=== PATIENT | female | born 1995 | race American Indian/Alaskan Native ===

== ENCOUNTER 2019-12-01 20:09 | Emergency (ER) | payer OTHER ==
[2019-12-01] MEDS ORDERED: SODIUM CHLORIDE 0.9% 1,000 ML IV ONE (20:53)
[2019-12-01] MEDS ORDERED: LOPERAMIDE 2 MG CAPSULE PO STA (20:54)
[2019-12-01] MEDS ORDERED: METOCLOPRAMIDE 10 MG/2 ML VIAL IVP STA (20:54)
[2019-12-01] MEDS ORDERED: KETOROLAC 30 MG/ML VIAL IVP STA (20:54)
--- NOTE | 2019-12-01 20:56 | ED Physician Documentation ---
History of Present Illness - Stated complaint Stated Complaint: NECK PX/SHEFFIELD - Chief complaint Chief Complaint: General - History obtained from History obtained from: Patient - History of Present Illness Timing: Other (For about 4 days now she has had left-sided neck pain that is much worse if she rotates her neck to the right. That developed into a headache that was worse yesterday, gradual in onset and improved today but not gone. Today she developed vomiting and diarrhea. No fevers. No light sensitivity. She tried Tylenol Motrin without relief. No sick contacts. She traveled around the [place] this month but no foreign travel.) Review of Systems Constitutional: denies: Fever, Chills Nose: denies: Rhinorrhea / runny nose, Congestion Throat: denies: Sore throat Respiratory: denies: Dyspnea, Cough GI: reports: Nausea, Vomiting, Diarrhea. denies: Abdominal Pain PD PAST MEDICAL HISTORY - Past Medical History Past Medical History: No Cardiovascular: None Respiratory: None Neuro: None Endocrine/Autoimmune: None GI: None SENIOR ACCOUNT DIRECTOR: None : None HEENT: None Psych: None Musculoskeletal: None Derm: None - Past Surgical History Past Surgical History: Yes /SENIOR ACCOUNT DIRECTOR: section - Present Medications Home Medications: Ambulatory Orders Medication Instructions Recorded Confirmed Cyclobenzaprine [Flexeril] 10 mg PO TID PRN #10 tablet 12/01/19 Neomycin/Polymyx/Hc Otic Drops 4 drops OT TID #1 bottle 12/01/19 [Cortisporin Ear Susp] Ondansetron Odt [Zofran] 4 mg TL Q6H PRN #10 tablet 12/01/19 - Allergies Allergies/Adverse Reactions: Allergies Allergy/AdvReac Type Severity Reaction Status Date / Time No Known Drug Allergies Allergy Verified 12/01/19 20:20 - Social History Does the pt smoke?: Yes Smoking Status: Current every day smoker Does the pt drink ETOH?: Yes Does the pt have substance abuse?: No - Immunizations Immunizations are current?: Yes - POLST Patient has POLST: No PD ED PE NORMAL - Vitals Vital signs reviewed: Yes - General General: Alert and oriented X 3, No acute distress - HEENT HEENT: PERRL, EOMI, Pharynx benign - Neck Neck: Other (Tender over the left sternocleidomastoid and difficulty with rotation of the neck to the right but no meningismus) - Cardiac Cardiac: RRR, No murmur - Respiratory Respiratory: No respiratory distress, Clear bilaterally - Abdomen Abdomen: Normal bowel sounds, Soft, Non tender - Back Back: No CVA TTP, No spinal TTP - Derm Derm: Normal color, Warm and dry - Extremities Extremities: No edema, No calf tenderness / cord - Neuro Neuro: Alert and oriented X 3, Normal speech - Psych Psych: Normal mood, Normal affect Results - Vitals Vitals: Vital Signs - 24 hr 12/01/19 12/01/19 12/01/19 20:20 21:25 21:35 Temperature 37.3 C Heart Rate 76 82 Respiratory 17 16 Rate Blood Pressure 117/61 111/66 O2 Saturation 97 99 12/01/19 21:37 Temperature 37.1 C Heart Rate 66 Respiratory 12 Rate Blood Pressure 111/66 O2 Saturation 98 Oxygen O2 Source Room air - Labs Labs: Laboratory Tests 12/01/19 12/01/19 21:08 21:34 WBC 11.8 H RBC 4.47 Hgb 13.7 Hct 41.1 MCV 91.9 MCH 30.6 MCHC 33.3 RDW 14.2 Plt Count 322 MPV 10.5 Neut # (Auto) 8.1 H Lymph # (Auto) 2.7 [place] # (Auto) 0.9 Eos # (Auto) 0.1 Baso # (Auto) 0.1 Absolute Nucleated RBC 0.00 Nucleated RBC % 0.0 Sodium 140 Potassium 3.5 Chloride 106 Carbon Dioxide 24 Anion Gap 10.0 BUN 14 Creatinine 0.8 Estimated GFR (MDRD) 87 L Glucose 97 Calcium 8.6 Total Bilirubin 0.8 AST 22 ALT 21 Alkaline Phosphatase 62 Total Protein 6.9 Albumin 4.1 Globulin 2.8 Albumin/Globulin Ratio 1.5 Lipase 28 - Rads (name of study) CT Head Radiology: EMP read contemporaneously (NAD) PD MEDICAL DECISION MAKING - ED course ED course: Seems like the 2 illnesses are unrelated, she seems to have a tension headache of the left side of the neck, no migrainous symptoms. No meningismus. Now has vomiting and diarrhea. I suspect again that these are separate, but will CT her head as at least yesterday was the worst headache of her life, again it is improved today as far as the headache goes but now more vomiting diarrhea which we will treat with IV fluids, Reglan, Toradol, and Imodium. After some IV fluids And the above meds she was feeling much better. Tolerating oral intake. Head CT was negative. Headache much better. Departure - Departure Disposition: 01 Home, Self Care Clinical Impression: Neck muscle spasm, Gastroenteritis Headache Qualifiers: Headache type: tension-type Headache chronicity pattern: acute headache Intractability: not intractable Qualified Code(s): G44.209 - Tension-type headache, unspecified, not intractable Condition: Good Record reviewed to determine appropriate education?: Yes Instructions: ED Headache Tension, ED Gastroenteritis Viral Prescriptions: Cyclobenzaprine [Flexeril] 10 mg PO TID PRN #10 tablet PRN Reason: Spasms Neomycin/Polymyx/Hc Otic Drops [Cortisporin Ear Susp] 4 drops OT TID #1 bottle Ondansetron Odt [Zofran] 4 mg TL Q6H PRN #10 tablet PRN Reason: Nausea / Vomiting Comments: You should be better within the next 12 to 24 hours, return in that timeframe if not improved or anytime for new or worsening symptoms. Forms: Activity restrictions
[2019-12-01 21:17] LABS: BASOPHILS # (AUTO) 0.1 10^3/uL (0.0-0.1); BASOPHILS % (AUTO) 0.9 %; EOSINOPHILS # (AUTO) 0.1 10^3/uL (0.0-0.7); EOSINOPHILS % (AUTO) 0.4 %; HGB - HEMOGLOBIN 13.7 g/dL (12.0-16.0); LYMPHOCYTES # (AUTO) 2.7 10^3/uL (1.5-3.5); LYMPHOCYTES % (AUTO) 22.5 %; MEAN CORPUSCULAR HEMOGLOBIN 30.6 pg (27.0-31.0); MEAN CORPUSCULAR HGB CONC 33.3 g/dL (32.0-36.0); MEAN CORPUSCULAR VOLUME 91.9 fL (81.0-99.0); MEAN PLATELET VOLUME 10.5 fL (7.9-10.8); MONOCYTES # (AUTO) 0.9 10^3/uL (0.0-1.0); MONOCYTES % (AUTO) 7.2 %; NEUTROPHILS # (AUTO) 8.1 10^3/uL (1.5-6.6); NEUTROPHILS % (AUTO) 68.5 %; PLT - PLATELET COUNT 322 10^3/uL (130-450); RED BLOOD COUNT 4.47 10^6/uL (4.20-5.40); RED CELL DISTRIBUTION WIDTH 14.2 % (12.0-15.0); WHITE BLOOD COUNT 11.8 x10^3/uL (4.8-10.8)
[2019-12-01 21:36] VITALS: BP 111/66
--- NOTE | 2019-12-01 21:42 | CT Report ---
Reason: WHOL Procedure Date: 12/01/2019 Accession Number: [id number] / [id number] Procedure: CT - HEAD WO CPT Code: Final Report FULL RESULT: EXAM: CT HEAD EXAM DATE: 12/01/2019 09:27 PM. CLINICAL HISTORY: WHOL. COMPARISON: None. TECHNIQUE: Multiaxial CT images were obtained from the foramen magnum to the vertex. Reformats: Sagittal and coronal. IV contrast: None. In accordance with CT protocol optimization, one or more of the following dose reduction techniques were utilized for this exam: automated exposure control, adjustment of mA and/or KV based on patient size, or use of iterative reconstructive technique. FINDINGS: Parenchyma: No intraparenchymal hemorrhage. No evidence of mass, midline shift or CT findings of acute territorial infarction. Thomas-white differentiation is distinct. Extraaxial Spaces: No subdural or epidural collections identified. Ventricles: No hydrocephalus Sinuses: Imaged paranasal sinuses, orbits, and mastoids show no significant abnormality. Bones: No evidence of acute fracture or calvarial defect. Other: None. IMPRESSION: No acute intracranial abnormalities. RADIA
[2019-12-01 21:51] LABS: ALBUMIN 4.1 g/dL (3.2-5.5); ALBUMIN/GLOBULIN RATIO 1.5 (1.0-2.2); BILIRUBIN,TOTAL 0.8 mg/dL (0.2-1.0); CALCIUM 8.6 mg/dL (8.5-10.3); CREATININE 0.8 mg/dL (0.4-1.0); TOTAL PROTEIN 6.9 g/dL (6.7-8.2)
[2019-12-01] MEDS ORDERED: ONDANSETRON ODT 4 MG Prepack 2 TL STA (22:01)
[2019-12-01] MEDS ORDERED: CYCLOBENZAPRINE 10 MG Prepack 2 PO PRN (22:01)
== END 2019-12-01 22:20 | disposition home or self-care (01) ==
LOC: ED 20:09
DX: M62.838 Other muscle spasm (principal); M54.2 Cervicalgia; K52.9 Noninfective gastroenteritis and colitis, unspecified; G44.209 Tension-type headache, unspecified, not intractable; F17.200 Nicotine dependence, unspecified, uncomplicated
CPT/HCPCS: 36415; 70450; 80053; 83690; 85025; 96361; 96374; 96375; 99284; A9270; J2765

== ENCOUNTER 2020-05-29 12:29 | Emergency (ER) | payer OTHER ==
--- NOTE | 2020-05-29 13:30 | ED Physician Documentation ---
History of Present Illness - Stated complaint Stated Complaint: L LEG PX - Chief complaint Chief Complaint: Ext Problem - History obtained from History obtained from: Patient - Additonal information Additional information: Patient comes emergency department complaining of left buttock pain that shoots down her left lower extremity. This started a lot about 1 month ago after she fell off a ladder. 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 She states her pain had gotten better but she notices over the last week that it seems to be getting worse again. Patient states it is to the point where it is difficult for her to sleep because she cannot get comfortable in bed. Patient denies any other complaints at the time at this time. She was not injured in any other way. No swelling or erythema of the lower extremity. No numbness or tingling. Review of Systems Ten Systems: 10 systems reviewed and negative Constitutional: reports: Reviewed and negative Eyes: reports: Reviewed and negative Ears: reports: Reviewed and negative Nose: reports: Reviewed and negative Throat: reports: Reviewed and negative Cardiac: reports: Reviewed and negative Respiratory: reports: Reviewed and negative GI: reports: Reviewed and negative : reports: Reviewed and negative Skin: reports: Reviewed and negative Musculoskeletal: reports: Extremity pain Neurologic: reports: Reviewed and negative Psychiatric: reports: Reviewed and negative Endocrine: reports: Reviewed and negative Immunocompromised: reports: Reviewed and negative PD PAST MEDICAL HISTORY - Past Medical History Cardiovascular: None Respiratory: None Neuro: None Endocrine/Autoimmune: None GI: None WHALE TRAINER: None : None HEENT: None Psych: None Musculoskeletal: None Derm: None - Past Surgical History Past Surgical History: Yes /WHALE TRAINER: section - Present Medications Home Medications: Ambulatory Orders Medication Instructions Recorded Confirmed No Known Home Medications 05/29/20 05/29/20 - Allergies Allergies/Adverse Reactions: Allergies Allergy/AdvReac Type Severity Reaction Status Date / Time No Known Drug Allergies Allergy Verified 05/29/20 12:42 - Social History Does the pt smoke?: Yes Smoking Status: Current every day smoker Does the pt drink ETOH?: Yes Does the pt have substance abuse?: No - Immunizations Immunizations are current?: Yes - POLST Patient has POLST: No PD ED PE NORMAL - Vitals Vital signs reviewed: Yes - General General: Alert and oriented X 3, No acute distress - HEENT HEENT: Atraumatic, PERRL, EOMI, Moist mucous membranes - Neck Neck: Supple, no meningeal sign - Cardiac Cardiac: RRR, No murmur - Respiratory Respiratory: No respiratory distress, Clear bilaterally - Abdomen Abdomen: Soft, Non tender, Non distended - Back Back: No spinal TTP, Other - Derm Derm: Warm and dry - Extremities Extremities: No deformity, Other (Patient is tenderness over her left sciatic joint. No lower extremity edema or tenderness) - Neuro Neuro: Alert and oriented X 3, procedure manager 2-12 intact, No motor deficit, No sensory deficit, Other (Otherwise normal.) - Psych Psych: Normal mood, Normal affect Results - Vitals Vitals: Vital Signs - 24 hr 05/29/20 05/29/20 12:39 13:36 Temperature 36.6 C 36.6 C Heart Rate 81 70 Respiratory 18 16 Rate Blood Pressure 128/66 114/60 O2 Saturation 100 98 Oxygen O2 Source Room air PD MEDICAL DECISION MAKING - ED course Complexity details: considered differential, d/w patient ED course: Discussed with the patient that her symptoms are most consistent with sciatica. We have discussed stretching to alleviate the symptoms and taking as needed medication to help, as well. I discussed with her that if these do not alleviate the pain, then she will need to talk to her primary doctor about possibly getting MRI and physical therapy. We discussed home management of symptoms, as well as usual indications for return. Departure - Departure Disposition: 01 Home, Self Care Clinical Impression: Sciatica Qualifiers: Laterality: left Qualified Code(s): M54.32 - Sciatica, left side Condition: Stable Instructions: ED Sciatica Comments: Please Google "sciatica stretches" to find helpful exercises to relieve the pressure on your sciatic nerve. Discharge Date/Time: 05/29/20 13:54
[2020-05-29 13:37] VITALS: BP 114/60
== END 2020-05-29 13:54 | disposition home or self-care (01) ==
LOC: ED 12:29
DX: M54.32 Sciatica, left side (principal); F17.200 Nicotine dependence, unspecified, uncomplicated
CPT/HCPCS: 99282; 99284

== ENCOUNTER 2021-12-12 08:35 | Emergency (ER) | payer OTHER ==
[2021-12-12] MEDS ORDERED: ONDANSETRON 4 MG/2 ML VIAL IVP STA (09:01)
[2021-12-12] MEDS ORDERED: SODIUM CHLORIDE 0.9% 1,000 ML IV STA (09:01)
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
[2021-12-12 09:11] LABS: BASOPHILS # (AUTO) 0.1 10^3/uL (0.0-0.1); BASOPHILS % (AUTO) 1.1 %; EOSINOPHILS % (AUTO) 0.3 %; HCT - HEMATOCRIT 37.1 % (37.0-47.0); HGB - HEMOGLOBIN 12.7 g/dL (12.0-16.0); LYMPHOCYTES # (AUTO) 1.7 10^3/uL (1.5-3.5); LYMPHOCYTES % (AUTO) 26.7 %; MEAN CORPUSCULAR HEMOGLOBIN 30.8 pg (27.0-31.0); MEAN CORPUSCULAR HGB CONC 34.2 g/dL (32.0-36.0); MEAN PLATELET VOLUME 10.2 fL (7.9-10.8); MONOCYTES # (AUTO) 0.5 10^3/uL (0.0-1.0); NEUTROPHILS % (AUTO) 63.7 %; PLT - PLATELET COUNT 284 10^3/uL (130-450); RED BLOOD COUNT 4.12 10^6/uL (4.20-5.40); RED CELL DISTRIBUTION WIDTH 13.6 % (12.0-15.0); WHITE BLOOD COUNT 6.3 x10^3/uL (4.8-10.8)
[2021-12-12 09:25] LABS: ALBUMIN 4.5 g/dL (3.2-5.5); ALBUMIN/GLOBULIN RATIO 1.4 (1.0-2.2); BILIRUBIN,TOTAL 0.7 mg/dL (0.2-1.0); CALCIUM 9.2 mg/dL (8.5-10.3); CREATININE 0.6 mg/dL (0.4-1.0); POTASSIUM 3.6 mmol/L (3.5-5.0); TOTAL PROTEIN 7.7 g/dL (6.7-8.2)
[2021-12-12 09:51] LABS: BILIRUBIN,URINE NEGATIVE (NEGATIVE); GLUCOSE, URINE (UA) NEGATIVE (NEGATIVE); KETONES,URINE (UA) TRACE mg/dL (NEGATIVE); LEUKOCYTE ESTERASE, URINE NEGATIVE (NEGATIVE); NITRITE,URINE NEGATIVE (NEGATIVE); OCCULT BLOOD,URINE NEGATIVE (NEGATIVE); PROTEIN,URINE NEGATIVE (NEGATIVE); UROBILINOGEN,URINE 1 (NORMAL) E.U./dL (NORMAL)
[2021-12-12 09:53] LABS: CLARITY,URINE CLEAR (CLEAR); HCG UR QUAL NEGATIVE
[2021-12-12 10:44] VITALS: BP 118/80
== END 2021-12-12 10:44 | disposition home or self-care (01) ==
LOC: ED 08:35
DX: R11.2 Nausea with vomiting, unspecified (principal); R19.7 Diarrhea, unspecified; R00.2 Palpitations; F17.200 Nicotine dependence, unspecified, uncomplicated
CPT/HCPCS: 36415; 80053; 81001; 81003; 81025; 83690; 85025; 87086; 93005; 96374; 99283

== ENCOUNTER → 2022-11-13 | Outpatient (CLI) | payer OTHER | END | disposition critical access hospital (66) | LOC: EMS 03:31 | DX: T50.901A Poisoning by unspecified drugs, medicaments and biological substances, accidental (unintentional), initial encounter (principal) | CPT/HCPCS: A0425; A0427 ==

== ENCOUNTER 2023-01-11 21:36 | Outpatient (CLI) | payer OTHER | END 2023-01-11 21:37 | disposition left against medical advice (07) | LOC: EMS 21:36 | DX: S00.03XA Contusion of scalp, initial encounter (principal); S00.81XA Abrasion of other part of head, initial encounter; Y04.2XXA Assault by strike against or bumped into by another person, initial encounter; Y92.481 Parking lot as the place of occurrence of the external cause ==

== ENCOUNTER 2023-01-12 00:09 | Emergency (ER) | payer OTHER ==
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
[2023-01-12] MEDS ORDERED: KETOROLAC 15 MG/ML VIAL IVP STA (00:43)
[2023-01-12] MEDS ORDERED: ONDANSETRON 4 MG/2 ML VIAL IVP STA (00:43)
[2023-01-12] MEDS ORDERED: SODIUM CHLORIDE 0.9% 1,000 ML IV STA (00:43)
[2023-01-12] MEDS ORDERED: ACETAMINOPHEN 325 MG TABLET PO STA (00:45)
[2023-01-12 01:03] LABS: BASOPHILS # (AUTO) 0.1 10^3/uL (0.0-0.1); BASOPHILS % (AUTO) 0.8 %; EOSINOPHILS # (AUTO) 0.1 10^3/uL (0.0-0.7); EOSINOPHILS % (AUTO) 0.6 %; HCT - HEMATOCRIT 34.1 % (37.0-47.0); HGB - HEMOGLOBIN 11.4 g/dL (12.0-16.0); LYMPHOCYTES # (AUTO) 2.2 10^3/uL (1.5-3.5); LYMPHOCYTES % (AUTO) 27.6 %; MEAN CORPUSCULAR HEMOGLOBIN 29.5 pg (27.0-31.0); MEAN CORPUSCULAR HGB CONC 33.4 g/dL (32.0-36.0); MEAN CORPUSCULAR VOLUME 88.3 fL (81.0-99.0); MEAN PLATELET VOLUME 10.2 fL (7.9-10.8); MONOCYTES # (AUTO) 0.5 10^3/uL (0.0-1.0); NEUTROPHILS # (AUTO) 5.1 10^3/uL (1.5-6.6); NEUTROPHILS % (AUTO) 64.7 %; PLT - PLATELET COUNT 394 10^3/uL (130-450); RED BLOOD COUNT 3.86 10^6/uL (4.20-5.40); RED CELL DISTRIBUTION WIDTH 14.6 % (12.0-15.0); WHITE BLOOD COUNT 7.8 x10^3/uL (4.8-10.8)
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
[2023-01-12 01:34] LABS: ALBUMIN 4.1 g/dL (3.2-5.5); ALBUMIN/GLOBULIN RATIO 1.2 (1.0-2.2); ALKALINE PHOSPHATASE 56 IU/L (42-121); ALT ALANINE AMINOTRANSFERASE 17 IU/L (10-60); AST ASPARTATE AMINOTRANSFERASE 19 IU/L (10-42); BILIRUBIN,TOTAL 0.4 mg/dL (0.2-1.0); BUN - BLOOD UREA NITROGEN < 5 mg/dL (6-20); CARBON DIOXIDE - CO2 21 mmol/L (21-32); CHLORIDE 111 mmol/L (101-111); CREATININE 0.5 mg/dL (0.4-1.0); GFR - MDRD 146 (>89); GLUCOSE 120 mg/dL (70-100); LIPASE 29 U/L (22-51); POTASSIUM 3.6 mmol/L (3.5-5.0); SODIUM 144 mmol/L (135-145); TOTAL PROTEIN 7.4 g/dL (6.7-8.2)
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
[2023-01-12 02:58] VITALS: BP 106/77
[2023-01-12] MEDS ORDERED: ONDANSETRON ODT 4 MG Prepack 2 TL PRN (03:00)
[2023-01-12] MEDS ORDERED: CHERRY SYRUP 10 ML UDC PO ONE (03:01)
[2023-01-12] MEDS ORDERED: METHYLERGONOVINE 0.2 MG/ML VIAL PO STA (03:01)
[2023-01-12] MEDS ORDERED: METHYLERGONOVINE 0.2 MG/ML VIAL ONE (03:13)
--- NOTE | 2023-01-12 08:38 | Ultrasound Report ---
PROCEDURE: Pelvic w/Transvag+Doppler Comp INDICATIONS: miscarriage 7 days ago, persistent bleeding TECHNIQUE: Real-time scanning was performed of the pelvic organs, with image documentation. Additional endovagi nal scanning was necessary due to incomplete visualization of the adnexal and endometrial structures by transabdominal scanning. Doppler interrogation was performed of the ovaries bilaterally. COMPARISON: None. FINDINGS: No pathologic free abdominal or pelvic fluid. Uterus: Uterus is enlarged in size at 9 x 4.3 x 5.6 cm. Myometrium is heterogeneous in echotexture. No discrete uterine fibroid is seen. The endometrium measures 20.3 mm in combined thickness. Hetero geneous echotexture of endometrium is noted. Heterogeneous material is noted in the cervix measures 2 .1 x 3.1 x 2.3 cm in size which could represent blood products. Anechoic nabothian cyst is also seen. Ovaries: Right ovary measures 6.5 x 3.4 x 4.3 cm in size with a volume of 50 cc. Predominantly anech oic cyst of right ovary is seen measures 3.5 x 3.5 x 3.7 cm in size. Left ovary is suboptimally visua lized and measures 1.9 x 1 cm in size. No gross abnormality is seen in left ovary. Normal appearing a rterial and venous waveforms are confirmed to each ovary.] Other: No free pelvic fluid. IMPRESSION: 1. Thickened and heterogeneous endometrium measures up to 2 cm likely containing blood products and d ebris extending to lower uterine segment and cervix. Underlying endometrial mass cannot be entirely e xcluded. COMPUTER HELP DESK REPRESENTATIVE correlation is recommended. 2. Anechoic cyst seen in right ovary as above. No solid-appearing ovarian lesion. 3. No evidence of ovarian torsion. No discrepancies. Reviewed by: Andrew Allen MD on 01/12/2023 8:36 AM PST Approved by: Andrew Allen MD on 01/12/2023 8:36 AM PST Station ID: [id number]
== END 2023-01-12 03:27 | disposition home or self-care (01) ==
LOC: ED 00:09
DX: S06.0X0A Concussion without loss of consciousness, initial encounter (principal); S00.83XA Contusion of other part of head, initial encounter; O03.9 Complete or unspecified spontaneous abortion without complication; S60.221A Contusion of right hand, initial encounter; Y04.2XXA Assault by strike against or bumped into by another person, initial encounter
CPT/HCPCS: 36415; 70551; 73130; 76830; 76856; 80053; 83690; 84702; 85025; 93975; 96361; 96374; 96375; 99284; A9270; J2210

== ENCOUNTER 2023-01-28 08:00 | Emergency (ER) | payer OTHER ==
[2023-01-28 08:42] LABS: BASOPHILS # (AUTO) 0.1 10^3/uL (0.0-0.1); BASOPHILS % (AUTO) 0.5 %; EOSINOPHILS # (AUTO) 0.1 10^3/uL (0.0-0.7); EOSINOPHILS % (AUTO) 0.9 %; HCT - HEMATOCRIT 34.2 % (37.0-47.0); HGB - HEMOGLOBIN 10.9 g/dL (12.0-16.0); LYMPHOCYTES # (AUTO) 1.3 10^3/uL (1.5-3.5); LYMPHOCYTES % (AUTO) 12.4 %; MEAN CORPUSCULAR HEMOGLOBIN 27.7 pg (27.0-31.0); MEAN CORPUSCULAR HGB CONC 31.9 g/dL (32.0-36.0); MEAN PLATELET VOLUME 9.3 fL (7.9-10.8); MONOCYTES # (AUTO) 0.7 10^3/uL (0.0-1.0); MONOCYTES % (AUTO) 6.8 %; NEUTROPHILS # (AUTO) 8.1 10^3/uL (1.5-6.6); PLT - PLATELET COUNT 400 10^3/uL (130-450); RED BLOOD COUNT 3.93 10^6/uL (4.20-5.40); RED CELL DISTRIBUTION WIDTH 14.1 % (12.0-15.0); WHITE BLOOD COUNT 10.3 x10^3/uL (4.8-10.8)
[2023-01-28 08:57] LABS: ALBUMIN/GLOBULIN RATIO 1.3 (1.0-2.2); BILIRUBIN,TOTAL 0.4 mg/dL (0.2-1.0); CREATININE 0.6 mg/dL (0.4-1.0); POTASSIUM 3.7 mmol/L (3.5-5.0)
[2023-01-28] MEDS ORDERED: KETOROLAC 60 MG/2 ML VIAL IM STA (09:58)
[2023-01-28] MEDS ORDERED: ONDANSETRON ODT 4 MG TABLET TL STA (09:58)
[2023-01-28] MEDS ORDERED: ACETAMINOPHEN 325 MG TABLET PO STA (09:58)
[2023-01-28] MEDS ORDERED: SODIUM CHLORIDE 0.9% 1,000 ML IV STA (09:59)
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
[2023-01-28 10:24] LABS: HCG,QUALITATIVE BLOOD NEGATIVE
[2023-01-28 12:16] LABS: B. PARAPERTUSSIS- RESP PCR PAN NOT DETECTED; B. PERTUSSIS- RESP PCR PANEL NOT DETECTED; C. PNEUMONIAE- RESP PCR PANEL NOT DETECTED; CORONAVIRUS 229E-RESP PCR NOT DETECTED; CORONAVIRUS HKU1-RESP PCR NOT DETECTED; CORONAVIRUS NL63-RESP PCR NOT DETECTED; CORONAVIRUS OC43-RESP PCR NOT DETECTED; HUMAN METAPNEUMOVIRUS NOT DETECTED; INFLUENZA A- RESP PCR PANEL NOT DETECTED; INFLUENZA B - RESP PCR PANEL NOT DETECTED; M. PNEUMONIAE- RESP PCR PANEL NOT DETECTED; PARAINFLUENZA VIRUS 1 NOT DETECTED; PARAINFLUENZA VIRUS 2 NOT DETECTED; PARAINFLUENZA VIRUS 3 NOT DETECTED; PARAINFLUENZA VIRUS 4 NOT DETECTED; RHINOVIRUS/ENTEROVIRUS NOT DETECTED; RSV- RESP PCR PANEL NOT DETECTED; SARS-CoV-2 -RESP PCR PANEL NOT DETECTED
[2023-01-28 12:56] VITALS: BP 99/62
== END 2023-01-28 12:58 | disposition home or self-care (01) ==
LOC: ED 08:00
DX: R55 Syncope and collapse (principal); B34.9 Viral infection, unspecified; F17.200 Nicotine dependence, unspecified, uncomplicated; Z20.822 Contact with and (suspected) exposure to COVID-19
CPT/HCPCS: 36415; 80053; 83690; 84484; 84703; 85025; 87633; 93005; 99284; A9270; Q0162

== ENCOUNTER 2023-07-06 12:05 | Emergency (ER) | payer OTHER ==
--- NOTE | 2023-07-06 12:27 | ED Physician Documentation ---
History of Present Illness - Stated complaint Stated Complaint: PREG, CRAMPING - Chief complaint Chief Complaint: General - Additonal information Additional information: 27-year-old female presents at approximately 6 weeks for her lower abdominal cramping and light spotting. Symptoms started yesterday. She has not had any dysuria urgency or frequency, no nausea or vomiting, no constipation or diarrhea. She has not yet had care or an ultrasound this . Review of Systems Constitutional: reports: Reviewed and negative Cardiac: reports: Reviewed and negative Respiratory: reports: Reviewed and negative GI: reports: Abdominal Pain. denies: Abdominal Swelling, Nausea, Vomiting, Constipation, Diarrhea, Hematemesis : reports: Now EGA. 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 - Present Medications Home Medications: Ambulatory Orders Medication Instructions Recorded Confirmed No Known Home Medications 07/06/23 07/06/23 - Allergies Allergies/Adverse Reactions: Allergies Allergy/AdvReac Type Severity Reaction Status Date / Time No Known Drug Allergies Allergy Verified 01/28/23 08:25 - Social History Does the pt smoke?: Yes Smoking Status: Current every day smoker Does the pt drink ETOH?: Yes Does the pt have substance abuse?: No - Immunizations Immunizations are current?: Yes - POLST Patient has POLST: No PD ED PE NORMAL - Vitals Vital signs reviewed: Yes - General General: Alert and oriented X 3, No acute distress, Well developed/nourished - HEENT HEENT: Atraumatic, Moist mucous membranes - Cardiac Cardiac: RRR, No murmur - Respiratory Respiratory: No respiratory distress, Clear bilaterally - Abdomen Abdomen: Normal bowel sounds, Soft, Non tender, Non distended - Derm Derm: Normal color, Warm and dry - Neuro Neuro: Alert and oriented X 3 Eye Opening: Spontaneous Motor: Obeys Commands Verbal: Oriented GCS Score: 15 - Psych Psych: Normal mood, Normal affect Results - Vitals Vitals: Vital Signs - 24 hr 07/06/23 07/06/23 07/06/23 12:10 12:12 13:53 Temperature 36.6 C 36.6 C 36.6 C Heart Rate 72 72 70 Respiratory 20 20 16 Rate Blood Pressure 131/64 H 131/64 H 120/62 O2 Saturation 99 99 100 Oxygen O2 Source Room air - Labs Labs: Laboratory Tests 07/06/23 07/06/23 07/06/23 12:42 13:00 13:00 Beta HCG, Quant 76010.1 Urine Color YELLOW Urine Clarity CLEAR Urine pH 7.0 Ur Specific [place] <=1.005 Urine Protein NEGATIVE Urine Glucose (UA) NEGATIVE Urine Ketones NEGATIVE Urine Occult Blood MODERATE H Urine Nitrite NEGATIVE Urine Bilirubin NEGATIVE Urine Urobilinogen 0.2 (NORMAL) Ur Leukocyte Esterase NEGATIVE Urine RBC 0-5 Urine WBC 0-3 Ur Squamous Epith Cells MOD Squamous H Urine Bacteria None Seen Ur Microscopic Review INDICATED Urine Culture Comments NOT INDICATED Urine HCG, Qual POSITIVE - Rads (name of study) No standard instances Relevant Findings:: Final report received PD Medical Decision Making - ED course Complexity details: reviewed results, considered differential, d/w patient, d/w family ED course: 27-year-old female at approximately 6 weeks presenting with lower abdominal pain and light spotting. Differentials included miscarriage, Ectopic , other first trimester bleeding, UTI. The patient is well-appearing on physical exam, hemodynamically stable and afebrile. She has no reproducible abdominal pain on exam. We obtained a urinalysis that she is negative for signs of infection, a quantitative hCG is appropriately elevated and thus we proceeded with a 6 ultrasound. Ultrasound reveals a live single IUP at approximately 5 weeks 6 days with a heart rate of 117. She has a small subchorionic hemorrhage which is likely causing her bleeding. I discussed with patient at this time that her exam was reassuring, recommended that she establish care soon as possible and discussed return precautions if she had heavier bleeding, increasing cramping or pain, pain with urination or other new concerns. Departure - Departure Disposition: 01 Home, Self Care Clinical Impression: with suprapubic cramping, antepartum Condition: Good Instructions: Preg 1st Trimester, ED Abdominal Pain Rule Out Ectopic Comments: Your ultrasound Shows a healthy baby at about 5 weeks 6 days, you have a small subchorionic hemorrhage which is an area where there can be light bleeding but this typically does not not cause any further problems, there were no other concerning findings on your exam. You do not have a urinary tract infection and your hormone, hCG, is rising appropriately. Please follow-up with your OB in the next couple of weeks. Return if you have bleeding, increasing pain, vomiting, fever or other new concerns. Forms: PCP List Discharge Date/Time: 07/06/23 13:53
[2023-07-06 13:06] LABS: BILIRUBIN,URINE NEGATIVE (NEGATIVE); GLUCOSE, URINE (UA) NEGATIVE (NEGATIVE); KETONES,URINE (UA) NEGATIVE (NEGATIVE); LEUKOCYTE ESTERASE, URINE NEGATIVE (NEGATIVE); NITRITE,URINE NEGATIVE (NEGATIVE); OCCULT BLOOD,URINE MODERATE (NEGATIVE); PROTEIN,URINE NEGATIVE (NEGATIVE); UROBILINOGEN,URINE 0.2 (NORMAL) E.U./dL (NORMAL)
[2023-07-06 13:10] LABS: CLARITY,URINE CLEAR (CLEAR)
[2023-07-06 13:13] LABS: BACTERIA,URINE None Seen /HPF (None Seen); RBC,URINE 0-5 /HPF (0-5); SQUAMOUS EPITHELIAL CELL,UR MOD Squamous (<= Few); WBC,URINE 0-3 /HPF (0-5)
[2023-07-06 13:14] LABS: HCG UR QUAL POSITIVE
[2023-07-06 13:58] VITALS: BP 120/62; O2SAT 100
--- NOTE | 2023-07-06 14:18 | Ultrasound Report ---
PROCEDURE: OB First Trimester w/TV INDICATIONS: first trimester, pelvic cramp, r/o ectopic/miscarr OUTSIDE/PRIOR DATING DATA: Last menstrual period (LMP): 05/30/2023. LMP-based estimated date of delivery (JAZZMINE): 03/05/2024. First dating scan (date and location): 07/06/2023. Estimated date of delivery (JAZZMINE) from first dating scan: 03/01/2024. TECHNIQUE: Real-time scanning was performed of the fetus and maternal pelvic organs, with image documentation. Endovaginal scanning was also performed to better visualize the fetus and maternal ovaries. COMPARISON: None. FINDINGS: Intrauterine gestational sac present. Embryo: A single living intrauterine gestation is present with a heart rate of 117 bpm. [place]- rump length is 3 mm, corresponding to a 5 week 6 day gestation. Other: Small para gestational hemorrhage measuring 12 mm. Measurement variability in dating: +/- 4 weeks by LMP, +/- 7 days by mean sac diameter (use before 6 weeks gestation if crown-rump length not able to be measured), +/- 5 days by crown-rump length (6-12 weeks gestation). Maternal organs: Conversely a cyst on the right ovary. IMPRESSION: 1. Single living intrauterine gestation. 2. Small subchorionic hemorrhage. Reviewed by: Jessie Hernandez MD on 07/06/2023 2:16 PM PDT Approved by: Jessie Hernandez MD on 07/06/2023 2:16 PM PDT Station ID: [id number]
== END 2023-07-06 13:53 | disposition home or self-care (01) ==
LOC: ED 12:05
DX: O26.891 Other specified pregnancy related conditions, first trimester (principal); R10.30 Lower abdominal pain, unspecified; O26.851 Spotting complicating pregnancy, first trimester; Z3A.01 Less than 8 weeks gestation of pregnancy; O99.331 Smoking (tobacco) complicating pregnancy, first trimester; F17.200 Nicotine dependence, unspecified, uncomplicated
CPT/HCPCS: 36415; 81001; 81003; 81025; 84702; 87086; 99283; 99284